=== PATIENT | female | born 1965 | race Caucasian/White ===

== ENCOUNTER → 2019-06-16 | Day surgery (SDC) | payer BC ==
[~2019-06-16] MED LIST: HYOSCYAMINE 0.125 MG TAB ONE; MULTI-VITAMIN1 EACH PO; PROPOFOL IV EMULSION 10 MG/ML 50 ML VIAL ONE; VITAMIN D1000 UNI1 PO; VITAMIN K100 MCG PO
[2019-06-16 10:20] VITALS: BP 156/90
--- NOTE | 2019-06-16 16:39 | Operative Report ---
DATE OF PROCEDURE: 06/16/2019 SURGEON: Terell Raphael MD PROCEDURE: EGD with polypectomy and biopsies and a colonoscopy with polypectomy and biopsies. INDICATIONS FOR EGD: Acid reflux. INDICATIONS FOR COLONOSCOPY: Colorectal cancer screening. MEDICATIONS: The patient was done under MAC. Please see Anesthesiologist's note. PROCEDURE IN DETAIL: With the patient in left lateral decubitus position, flexible fiberoptic Olympus gastroscope was introduced into the esophagus under direct visualization without any difficulty. There was some patchy erythema noted in distal esophagus. The scope was then advanced with ease into the stomach traversing a small hiatal hernia. Mucosa overlying the antrum and the body revealed some patchy erythema and [id number] edema and biopsies were obtained and sent to stain for H. pylori. An approximately 1 cm sessile polyp was noted in the proximal body along the posterior wall that was removed per snare electrocautery and site was hemoclipped. Pylorus was of normal contour and shape, was intubated with ease, and the scope was advanced all the way to the second portion of the duodenum. Biopsies were obtained from the second portion and the duodenal bulb to rule out sprue. The scope was then withdrawn back into the stomach and retroflexed mucosa overlying the fundus and cardia appeared to be within normal limits. The scope was then straightened out and was subsequently withdrawn. The patient tolerated the procedure well. IMPRESSION: 1. Distal esophagitis, mild. 2. Small sliding hiatal hernia. 3. Gastritis, biopsied. Biopsies sent to stain for H. pylori. 4. Gastric polyp approximately 1 cm in size, proximal body posterior wall removed per snare electrocautery and the site was hemoclipped x1. 5. Rule out sprue. PLAN: Follow up histology. Increase Nexium to 40 mg one p.o. a.c. b.i.d. Procedure 2: The patient was then turned around and after adequate lubrication of the anal canal, flexible fiberoptic Olympus colonoscope was inserted into the rectum with ease and advanced all the way to the cecum. Mucosa overlying the cecum appeared to be within normal limits. The ileocecal valve was intubated and the scope was advanced into the terminal ileum. An ulcer was noted in the terminal ileum and that was biopsied. The scope was then withdrawn back into the colon. It was then withdrawn slowly. Mucosa overlying the ascending colon appeared to be within normal limits. One polyp was hot biopsied from the distal transverse colon and site was hemoclipped. The rest of the transverse as well as the descending appeared to be within normal limits. One polyp was biopsied from the descending colon. Approximately 1 cm sessile polyp was removed per snare electrocautery from the rectosigmoid and site was hemoclipped. Three minute polyps were hot biopsied from the rectum. The scope was then retroflexed into the distal rectum and large internal hemorrhoids were noted. None of which was actively bleeding. The scope was then straightened out. The scope was subsequently withdrawn. The patient tolerated the procedure well. IMPRESSION: 1. Ulcer, terminal ileum, biopsied. 2. Transverse colon polyp hot biopsied, site hemoclipped x1. 3. Sigmoid colon polyp, hot biopsied. 4. Rectal sigmoid colon polyp approximately 1 cm in size, sessile, removed per snare electrocautery and site hemoclipped. 5. Rectal polyps x3 hot biopsied. 6. Internal hemorrhoids none actively bleeding. PLAN: Followup histology. Initiate high-fiber, low-fat diet. Initiate high-fiber supplement. Check IBD panel, CRP, and sedimentation rate. The patient might benefit from small bowel series. The patient might benefit from a followup colonoscopy in 3 years. MD JOSE RAFAEL Bishop/CHANDLER /[id number]
== END | disposition home or self-care (01) ==
LOC: OR 05:54
PROVIDERS: ATTEND Internal Medicine Gastroenterology
DX: Z12.11 Encounter for screening for malignant neoplasm of colon (principal); K63.5 Polyp of colon; K62.1 Rectal polyp; K31.7 Polyp of stomach and duodenum; K29.70 Gastritis, unspecified, without bleeding; K63.3 Ulcer of intestine; K20.9 Esophagitis, unspecified; K21.9 Gastro-esophageal reflux disease without esophagitis; K44.9 Diaphragmatic hernia without obstruction or gangrene; K64.8 Other hemorrhoids; R03.0 Elevated blood-pressure reading, without diagnosis of hypertension; Z88.2 Allergy status to sulfonamides; Z01.810 Encounter for preprocedural cardiovascular examination; Z68.27 Body mass index [BMI] 27.0-27.9, adult
CPT/HCPCS: 36415; 43239; 45380; 45384; 45385; 81025; 85651; 86140; 86256; 86671; 93005; J2704; 43251; 45378

== ENCOUNTER → 2019-07-04 | Outpatient (CLI) | payer BC ==
[~2019-07-04] MED LIST changes: -HYOSCYAMINE 0.125 MG TAB ONE; -PROPOFOL IV EMULSION 10 MG/ML 50 ML VIAL ONE
--- NOTE | 2019-07-04 13:40 | Diagnostic Imaging Report ---
Small bowel series, 07/04/2019. History: Abdominal pain and diarrhea. Discussion: A computational chemist film of the abdomen was obtained demonstrating no abnormality. A clip is noted in the region of the hepatic flexure of the colon. Patient was given barium to drink and sequential digital images of the abdomen were obtained through 2 hours. Fluoroscopic spot images of the terminal ileum were obtained. Fluoroscopy time: 0.3 minutes. Dose: 8.3 mGy (MICAELA) The small bowel transit time is normal, and the small bowel loops are normal in size and appearance without evidence of mucosal irregularity or extrinsic abnormality. There is no evidence of mass, obstruction, or diverticula. IMPRESSION: Normal small bowel series. Signed by: Dayron Martinez on 07/04/2019 1:37 PM
== END ==
LOC: DX 08:58
PROVIDERS: ATTEND Internal Medicine Gastroenterology
DX: K20.9 Esophagitis, unspecified (principal); R10.30 Lower abdominal pain, unspecified
CPT/HCPCS: 74250